=== PATIENT | female | born 1970 | race Caucasian/White ===

== ENCOUNTER 2016-12-02 08:27 | Emergency (ER) | payer OTHER ==
[~2016-12-02] VITALS: Wt 69.0 kg
[~2016-12-02 08:27] MED LIST: ADV10050; DICY10CA60 PO; ELIM TOP; IBUP-1542 PO; ONDA4TAB8 PO
[2016-12-02] MEDS ORDERED: LIDOCAINE 1%/EPI (MDV) 20 ML INJ TOP ONE (10:00)
[2016-12-02] MEDS ORDERED: BACTDS PO (10:33)
--- NOTE | 2016-12-02 10:33 | ERD ---
ER Documentation Chief Complaint Date/Time DATE: 12/02/16 Chief Complaint Abscess to right axilla HPI The patient is a 46-year-old female who presents the emergency department with complaint of an abscess to her right axillary region. The patient reports that approximately one week ago she shaved her axillary regions. On Saturday, she began to notice an area of erythema, tenderness and swelling to the right axillary space, which appeared consistent with a "pimple". Over the following days, the area enlarged, with increased erythema, warmth, tenderness, swelling and fluctuance. Yesterday, she noted a small amount of spontaneous yellow- colored drainage from the region, and she placed a Band-Aid to the area to avoid making her clothes dirty. Since, the spontaneous drainage has stopped. However, she continues to experience the other symptoms of redness, warmth, tenderness and swelling. She denies any fevers or chills. Denies nausea or vomiting. Denies any red streaking to the arm. She rates her current discomfort as 0 out of 10, though notes that it increases to 4 out of 10 with palpation. The pain is described as aching in nature. ROS All systems reviewed and are negative except as per history of present illness. Medications Home Meds Active Scripts Sulfamethoxazole-Trimethoprim* (Bactrim* DS) 800-160 Mg Tab, 1 TAB PO BID for 7 Days, TAB Prov:GEORGINA NOYOLA PA-C 12/02/16 Ibuprofen* (Motrin*) 600 Mg Tab, 600 MG PO Q6, #20 TAB Prov:STACEY RILEY NP 08/10/16 Permethrin* (Elimite*) 5% Cr, 1 APPLIC TOP ONCE for 1 Day, TUB Prov:STACEY RILEY NP 08/10/16 Dicyclomine Hcl* (Bentyl*) 10 Mg Capsule, 10 MG PO QID for 3 Days, CAP Prov:NINFA FLORES 03/31/16 Ondansetron Hcl* (Zofran*) 4 Mg Tablet, 4 MG PO Q6H for NAUSEA AND/OR VOMITING, #30 TAB Prov:NINFA FLORES 03/31/16 Reported Medications Salmeterol Xinaf/Fluticasone* (Advair 100/50 Diskus*) 1 Inh Inha 04/12/11 Allergies Allergies: Coded Allergies: No Known Allergy (Verified Allergy, Unknown, 06/27/08) PMhx/Soc History of Surgery: Yes ( ) Anesthesia Reaction: No Hx Neurological Disorder: No Hx Respiratory Disorders: Yes (ASTHMA) Hx Cardiac Disorders: Yes (HTN IN ) Hx Psychiatric Problems: No Hx Miscellaneous Medical Probl: Yes (Gastritis) Hx Alcohol Use: No Hx Substance Use: No Hx Tobacco Use: No Physical Exam Vitals Vital Signs Date Time Temp Pulse Resp B/P Pulse Ox O2 Delivery O2 Flow Rate FiO2 12/02/16 10:44 98.0 88 18 152/67 99 Room Air 12/02/16 08:30 98.0 102 18 167/97 99 Physical Exam Const: Well-developed, well-nourished, in no acute distress. Head: Atraumatic Eyes: Normal Conjunctiva ENT: Normal External Ears, Nose and Mouth. Neck: Supple. Resp: Clear to auscultation bilaterally. Cardio: Regular rate and rhythm. Skin: 2.5 cm x 2.5 cm erythematous, raised, fluctuant abscess to right axillary region. No crepitus. No lymphatic streaking. No drainage. No bleeding. Ext: Moving all extremities. Neur: Awake and alert Psych: Cooperative. Results 24 hrs Current Medications Medications (Trade) Dose Ordered Sig/Valdez Route PRN Reason Start Time Stop Time Status Last Admin Dose Admin Lidocaine/ Epinephrine (Xylocaine 1%/ Epi (Mdv) 20 ml) 20 ml ONCE ONCE TOP 12/02/16 10:00 12/02/16 10:01 DC Procedures/MDM PROCEDURE: INCISION AND DRAINAGE OF ABSCESS INDICATION: Right axillary abscess PROCEDURE RELAY MAN: CONSENT: Consent was obtained from the patient prior to the procedure. Indications, risks, and benefits were explained at length. PROCEDURE SUMMARY: A timeout protocol was performed prior to initiating the procedure. The patient was positioned appropriately. The area was prepared and draped in the usual sterile manner. The site was adequately anesthetized with approximately 1 cc % lidocaine with epinephrine. The are was cleaned/irrigated with 10% betadine solution/NaCl. A sterile #11 blade scalpel was used to make a single linear 1 cm vertical incision along the local skin lines and the purulent material was expressed. The abscess was explored thoroughly and sequestered pockets were opened. Bleeding was minimal. Packing: The wound was packed with iodoform gauze The patient tolerated the procedure well without complications. The wound was dressed with sterile 4 x 4 gauze and paper tape. Standard post-procedure care was explained and return precautions were given. MEDICAL DECISION MAKING: This is a 46-year-old female patient presenting to the Emergency Department with a right axillary abscess that underwent incision and drainage. The patient had presence of purulent drainage noted s/p I&D. Packing was placed. The patient tolerated the procedure well. At this time the patient in stable condition and therefore can be discharged home with prescription for Bactrim DS PO BID x 7 days and given strict return precautions for signs of infection, uncontrollable pain, or any form of worsening or deteriorating condition. The patient is advised to follow up with her primary medical provider within 2 days for wound check, packing removal, reevaluation and further management, or to return to the ER sooner for any new or worsening symptoms. I shared my medical decision making and plan with the patient at length and in great detail and the patient verbally understands and agrees with the plan for further observation and care as an outpatient. At the time of discharge all questions were answered. Departure Diagnosis: Primary Impression: Abscess of right axilla Condition: Stable Patient Instructions: Abscess Drainage, Abscess, Incision And Drainage Additional Instructions: Follow up in 2 days for wound check, packing removal, reevaluation and further management. Return to the ED sooner for any new or worsening symptoms. GEORGINA NOYOLA PA-C Dec 02, 2016 10:33
[2016-12-02 10:44] VITALS: BP 152/67; PULSE 88; RESP 18; TEMP 98
== END 2016-12-02 10:45 | disposition home or self-care (01) ==
LOC: FTE 08:27
DX: L02.411 Cutaneous abscess of right axilla (principal); J45.909 Unspecified asthma, uncomplicated
CPT/HCPCS: 10061; Z7502

== ENCOUNTER 2016-12-04 08:29 | Emergency (ER) | payer OTHER ==
[~2016-12-04] VITALS: Ht 154.9 cm; Wt 77.5 kg
[~2016-12-04 08:29] MED LIST changes: +BACTDS PO
[2016-12-04 08:37] VITALS: Ht 154.9 cm; Wt 77.5 kg
--- NOTE | 2016-12-04 10:37 | ERD ---
ER Documentation Chief Complaint Date/Time DATE: 12/04/16 TIME: 10:36 Chief Complaint for wound recheck HPI This 46 female presents for a wound check on a right axillary abscess incised and drained 2 days ago. She feels better. There is no history of fevers, active discharge and her pain is improved. ROS All systems reviewed and are negative except as per history of present illness. Medications Home Meds Active Scripts Sulfamethoxazole-Trimethoprim* (Bactrim* DS) 800-160 Mg Tab, 1 TAB PO BID for 7 Days, TAB Prov:GEORGINA NOYOLA PA-C 12/02/16 Ibuprofen* (Motrin*) 600 Mg Tab, 600 MG PO Q6, #20 TAB Prov:STACEY RILEY NP 08/10/16 Permethrin* (Elimite*) 5% Cr, 1 APPLIC TOP ONCE for 1 Day, TUB Prov:STACEY RILEY NP 08/10/16 Dicyclomine Hcl* (Bentyl*) 10 Mg Capsule, 10 MG PO QID for 3 Days, CAP Prov:NINFA FLORES 03/31/16 Ondansetron Hcl* (Zofran*) 4 Mg Tablet, 4 MG PO Q6H for NAUSEA AND/OR VOMITING, #30 TAB Prov:NINFA FLORES 03/31/16 Reported Medications Salmeterol Xinaf/Fluticasone* (Advair 100/50 Diskus*) 1 Inh Inha 04/12/11 Allergies Allergies: Coded Allergies: No Known Allergy (Verified Allergy, Unknown, 06/27/08) PMhx/Soc History of Surgery: Yes ( ) Anesthesia Reaction: No Hx Neurological Disorder: No Hx Respiratory Disorders: Yes (ASTHMA) Hx Cardiac Disorders: Yes (HTN IN ) Hx Psychiatric Problems: No Hx Miscellaneous Medical Probl: Yes (Gastritis) Hx Alcohol Use: No Hx Substance Use: No Hx Tobacco Use: No Physical Exam Vitals Vital Signs Date Time Temp Pulse Resp B/P Pulse Ox O2 Delivery O2 Flow Rate FiO2 12/04/16 08:37 98.2 85 19 129/60 99 Physical Exam Const: [] Alert, [id number] Head: Atraumatic Eyes: Normal Conjunctiva ENT: Normal External Ears, Nose and Mouth. Neck: Full range of motion..~ No meningismus. Resp: Clear to auscultation bilaterally Cardio: Regular rate and rhythm, no murmurs Abd: Soft, non tender, non distended. Normal bowel sounds Skin: No petechiae or rashes. There is a healing abscess in the right axillary area without induration, erythema or active discharge. Gauze was removed. Back: No midline or flank tenderness Ext: No cyanosis, or edema Neur: Awake and alert Psych: Normal Mood and Affect Procedures/MDM Wound was redressed. Patient presents for wound check on a right axillary abscess which appears to be healing satisfactorily. There is no evidence of residual abscess, significant cellulitis, sepsis. She will be discharged home with instructions to continue her antibiotics and return for increasing redness , fevers, new worsening symptoms otherwise allow wound to close and heal by secondary intention. Departure Diagnosis: Primary Impression: Abscess Condition: Stable Patient Instructions: Abscess, Incision And Drainage Additional Instructions: Continue antibiotics. Recheck only for increased redness, swelling, fevers, new symptoms. SUJATA SHERWOOD MD Dec 04, 2016 10:37
== END 2016-12-04 10:55 | disposition home or self-care (01) ==
LOC: FTE 08:29
DX: Z48.01 Encounter for change or removal of surgical wound dressing (principal); J45.909 Unspecified asthma, uncomplicated
CPT/HCPCS: 99283